=== PATIENT | female | born 1970 | race Caucasian/White ===

== ENCOUNTER 2018-09-22 13:58 | Outpatient (CLI) | payer OTHER ==
[~2018-09-22] VITALS: Ht 160 cm; Wt 99.8 kg
[2018-09-22] MEDS ORDERED: VORT20TA PO (14:36)
[2018-09-22] MEDS ORDERED: OXYC-471 PO (14:36)
[2018-09-22] MEDS ORDERED: LISI40TA PO (14:36)
== END 2018-09-22 14:44 | disposition home or self-care (01) ==
LOC: PREOP 13:58
PROVIDERS: ATTEND Orthopaedic Surgery
DX: Z01.818 Encounter for other preprocedural examination (principal)

== ENCOUNTER 2018-09-25 11:43 | Day surgery (SDC) | payer BC, OTHER ==
[2018-09-25] VITALS (9 sets, daily range): BP systolic 106–157; BP diastolic 61–84
[~2018-09-25] VITALS: Ht 160 cm; Wt 99.8 kg
[~2018-09-25 11:43] MED LIST: LISI40TA PO; OXYC-471 PO; VORT20TA PO
[2018-09-25 12:16] LABS: BASOPHILS % (AUTO) 0 % (0-10); EOSINOPHILS % (AUTO) 0 % (0-10); HEMATOCRIT 42 % (35-52); HEMOGLOBIN 13.8 G/DL (11.5-16.0); LYMPHOCYTES # (AUTO) 5.8 X 10^3 (1.0-4.0); LYMPHOCYTES % (AUTO) 28 % (12-44); MEAN CORPUSCULAR HEMOGLOBIN 31 PG (25-34); MEAN CORPUSCULAR HGB CONC 33 G/DL (32-36); MEAN CORPUSCULAR VOLUME 94 FL (80-99); MEAN PLATELET VOLUME 11.6 FL (7.4-10.4); MONOCYTES # (AUTO) 1.4 X 10^3 (0.0-1.0); MONOCYTES % (AUTO) 7 % (0-12); NEUTROPHILS # (AUTO) 13.7 X 10^3 (1.8-7.8); NEUTROPHILS % (AUTO) 65 % (42-75); PLATELET COUNT 326 10^3/uL (130-400); RED CELL DISTRIBUTION WIDTH 14.6 % (10.0-14.5); WHITE BLOOD COUNT 20.9 10^3/uL (4.3-11.0)
[2018-09-25] MEDS: LACTATED RINGERS 1,000 ML IV PRN ×2 (12:50→18:41)
[2018-09-25] MEDS ORDERED: ceFAZolin 2 GM IV Premixed 50 ML IV ONE (13:00)
[2018-09-25 13:03] LABS: BAND NEUTROPHILS 0 %; BASOPHILS % (MANUAL) 0 %; EOSINOPHILS % (MANUAL) 0 %; LYMPHOCYTES % (MANUAL) 34 %; MONOCYTES % (MANUAL) 4 %; NEUTROPHILS % (MANUAL) 62 %
[2018-09-25 13:04] LABS: RBC MORPH NORMAL
[2018-09-25] MEDS ORDERED: fentaNYL INJECTION 100 MCG/2 ML AMP IV ONE (13:45)
[2018-09-25] MEDS ORDERED: fentaNYL INJECTION 100 MCG/2 ML AMP ONE ×3 (13:47→16:44)
[2018-09-25] MEDS ORDERED: BACITRACIN 100,000 UNIT/NS 1000 ML POUR BOTTLE IR ONE ×2 (14:15)
[2018-09-25] MEDS ORDERED: VANCOMYCIN 1000 MG/VIAL ONE (14:22)
[2018-09-25] MEDS ORDERED: fentaNYL INJECTION 100 MCG/2 ML AMP IVP ONE ×2 (15:00→16:30)
[2018-09-25] MEDS ORDERED: NEOSTIGMINE 1 MG/ML 5 ML SYRINGE ONE ×2 (16:44→18:35)
[2018-09-25] MEDS ORDERED: SUCCINYLCHOLINE INJ 100 MG/5 ML SYR ONE (16:44)
[2018-09-25] MEDS ORDERED: proPOfol 200 MG/20 ML (DIPRIVAN) VIAL IV ONE (16:44)
[2018-09-25] MEDS ORDERED: MIDAZOLAM 2 MG/2 ML (VERSED) VIAL ONE (16:44)
[2018-09-25] MEDS ORDERED: GLYCOPYRROLATE 0.2 MG/ML (ROBINUL) 2 ML VIAL ONE ×2 (16:44→18:35)
[2018-09-25] MEDS ORDERED: ONDANSETRON 4 MG/2 ML (SDV) Z0FRAN ONE (16:44)
[2018-09-25] MEDS ORDERED: DEXAMETHASONE 10 MG/ML (DECADRON) 1 ML VIAL ONE (16:44)
[2018-09-25] MEDS ORDERED: SEVOFLURANE (ULTANE) 15 ML INHAL SOLN ONE ×2 (16:44→18:35)
[2018-09-25] MEDS ORDERED: LIDOCAINE PF 2% 5 ML (XYLOCAINE) VIAL ONE (16:44)
[2018-09-25] MEDS ORDERED: ROCURONIUM 10 MG/ML 5 ML SYRINGE IV ONE (16:44)
[2018-09-25] MEDS ORDERED: LACTATED RINGERS 1,000 ML IV ONE (18:35)
[2018-09-25] MEDS ORDERED: morphine INJ 10 MG/ML 1ML (SYR OR VIAL) ONE (19:09)
[2018-09-25] MEDS ORDERED: NS IV 1000 ML 1,000 ML IV SCH (19:15)
[2018-09-25] MEDS ORDERED: ACETAMINOPHEN 325 MG TABLET PO PRN (19:15)
[2018-09-25] MEDS ORDERED: ONDANSETRON 4 MG/2 ML (SDV) Z0FRAN IV PRN (19:15)
[2018-09-25] MEDS: HYDROmorphone 2 MG/ML VIAL (DILAUDID) ONE ×2 (19:25→20:27)
[2018-09-25] MEDS ORDERED: morphine INJ 10 MG/ML 1ML (SYR OR VIAL) IVP ONE (19:45)
[2018-09-25] MEDS ORDERED: MEPERIDINE (DEMEROL) INJ 50 MG/ML IVP ONE (19:45)
[2018-09-25] MEDS ORDERED: ONDANSETRON 4 MG/2 ML (SDV) Z0FRAN IVP PRN (19:45)
[2018-09-25] MEDS ORDERED: HYDROmorphone 2 MG/ML VIAL (DILAUDID) IV ONE (19:45)
[2018-09-25] MEDS ORDERED: oxyCODONE/APAP 5/325MG (PERCOCET 5) TABLET ONE (21:00)
[2018-09-25] MEDS ORDERED: FAMOTIDINE 20 MG (PEPCID) TABLET ONE (21:02)
[2018-09-25] MEDS: oxyCODONE/APAP 5/325MG (PERCOCET 5) TABLET PO PRN (21:06)
[2018-09-25] MEDS: FAMOTIDINE 20 MG (PEPCID) TABLET PO SCH (21:06)
[2018-09-25] MEDS: ceFAZolin INJECTION 1,000 MG in WATER (STERILE) FOR INJECTION 10 ML IV SCH (22:59)
[2018-09-26] MEDS: fentaNYL INJECTION 100 MCG/2 ML AMP IVP PRN ×2 (00:25→13:06)
[2018-09-26] MEDS: oxyCODONE/APAP 5/325MG (PERCOCET 5) TABLET PO PRN ×4 (01:18→15:30)
--- NOTE | 2018-09-26 03:27 | OPERATIVE REPORT ---
DATE OF SERVICE: 09/25/2018 SURGEON: Tim Ribeiro DO. PHP MAGENTO DEVELOPER: DAYLIN Mehta. This is a medically necessary procedure. Assistance was necessary for retraction of vital neurovascular structures. Without an assistant customer service manager, the procedure would not be possible. PREOPERATIVE DIAGNOSES: 1. Lumbar hematoma. 2. Lumbar radiculopathy. POSTOPERATIVE DIAGNOSIS: 1. Lumbar hematoma. 2. Lumbar radiculopathy. PROCEDURE PERFORMED: 1. Irrigation and debridement with evacuation of hematoma, lumbar spine. 2. Revision laminectomy at L4-L5. COMPLICATIONS: None. SPECIMEN SENT: None. DRAIN PLACED: Hemovac. ANESTHESIA: General endotracheal tube anesthesia with local anesthetic. HISTORY OF PRESENT ILLNESS: The patient is a very pleasant 47-year-old female, who underwent 10 days ago a lumbar decompression. She did well initially; however, she began experiencing severe radiating left lower extremity pain again. MRI did demonstrate a compressive hematoma, therefore she was agreeable to return to the OR for evacuation of that. DESCRIPTION OF PROCEDURE: The patient was identified by name on wrist ID band in the preoperative holding area. Her operative site was signed, consent was signed. SCDs were placed. Neuro monitoring was hooked up and antibiotics were started. She was taken to the operating room theater and placed under general endotracheal tube anesthesia and then transferred to the operating room table in the prone position. She was prepped and draped in usual sterile fashion. Formal timeout was conducted. At this point, I made a midline incision over the old incision. I removed all of the sutures and opened up the wound. I irrigated and removed as much of the blood clots as I could. Please note there was a significant compression on the thecal sac. When I was finished; however, there was no further compression. Also note that I did a revision laminectomy and I have removed some bone, more of L4 lamina to fully access the hematoma. When I was happy that there was no further neurologic compression, I irrigated the wound, maintained hemostasis. I placed a subfascial Hemovac drain. I closed the wound utilizing 0 Vicryl followed by 2-0 Vicryl followed by interrupted horizontal 3-0 Vicryl stitches. I applied dressings, took the patient in the supine position to the PACU where she awoke without incident. She tolerated the procedure well. The plan at this time is to admit the patient overnight for IV antibiotics, IV pain control and postop monitoring. I will plan to discontinue her drain in the morning. I will see her back in 2 weeks. 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
[2018-09-26 04:00] VITALS: BP 139/67
[2018-09-26 05:40] VITALS: BP 139/67
[2018-09-26] MEDS: ceFAZolin INJECTION 1,000 MG in WATER (STERILE) FOR INJECTION 10 ML IV SCH ×2 (06:28→15:30)
[2018-09-26 08:00] VITALS: BP 157/81
[2018-09-26] MEDS ORDERED: lisINopril 40 MG (PRINIVIL) TABLET PO SCH (09:00)
[2018-09-26] MEDS: FAMOTIDINE 20 MG (PEPCID) TABLET PO SCH (09:45)
[2018-09-26] MEDS ORDERED: PATIENT MAY USE OWN MED,SINGLE MED PO SCH (10:00)
--- NOTE | 2018-09-26 10:42 | Physical Therapy Evaluation ---
PT Evaluation-General Medical Diagnosis Admission Date Medical Diagnosis: evacuation of lumbar spine hematoma, revision of laminectomy L4-5 Onset Date: Sep 25, 2018 Therapy Diagnosis Therapy Diagnosis: impaired mobility, strength, endurance Height/Weight Height (Feet): 5 Height (Inches): 3.00 Weight (Pounds): 220 Weight (Ounces): 0.0 Precautions Precautions/Isolations: Standard Precautions Weight Bear Status Right Lower Extremity: Right Full Weight Bearing Left Lower Extremity: Left Full Weight Bearing Referral Physician: Lorenzo Jacques Reason for Referral: Evaluation/Treatment Medical History Additional Medical History No medical history in chart yet. Social History Home: Single Level Current Living Status: Spouse Entry Into Home: Ramp Prior/Core FIM Prior Level of Function Therapy Code Descriptions/Definitions Functional [place] Measure: 0=Not Assessed/NA 4=Minimal Assistance 1=Total Assistance 5=Supervision or Setup 2=Maximal Assistance 6=Modified [place] 3=Moderate Assistance 7=Complete [place] Therapy Quality Codes: 6 Independent with activity with or without an assistive device 5 Patient requires set up or clean up by helper. Patient completes activity by themselves 4 Supervision or touching assist (CGA). [place] provide cues , steadying assist 3 The helper provides less than half the effort to complete the activity 2 The helper provides more than half the effort to complete the activity 1 Dependent. The helper does all the effort to complete an activity 7 Patient refused to complete or attempt activity 9 The patient did not perform the activity before the current illness or injury 88 Not attempted due to Medical conditions or safety concerns Functional Abilities and Goals: Independent: Patient completed the activities by him/herself, with or without an assistive device, with no assistance from a helper. Needed Some Help: Patient needed partial assistance from another person to complete activities. Dependent: A helper completed the activities for the patient. Unknown: Not Applicable: Bed Mobility: 7 Transfers (B,C,W/C) (FIM): 7 Gait: 7 Stairs: 7 Indoor Mobility (Ambulation): Independent Stairs: Independent Patient states she should have been using a rolling waker, she was ambulation with dragging her left foot on the floor. PT Evaluation-Current Subjective Patient in recliner pre tx, agrees to PT, has 7/10 pain in low back. Pt/Family Goals to be independent at home Objective Patient Orientation: Person, Place, Situation Attachments: Drains, IV back brace ROM/Strength ROM Lower Extremities WNL Strength Lower Extremities 4+/5 gross bilateral lower extremities Neuromuscular (Tone, Coordination, Reflexes) NT Sensory Hearing: Functional Sensation Right Lower Extremit: Intact Sensation Left Lower Extremity: Intact Transfers Therapy Code Descriptions/Definitions Functional [place] Measure: 0=Not Assessed/NA 4=Minimal Assistance 1=Total Assistance 5=Supervision or Setup 2=Maximal Assistance 6=Modified [place] 3=Moderate Assistance 7=Complete [place] Transfers (B, C, W/C) (FIM): 4 Sit to/from Stand: 4 CGA, cues for hand placement and safety Gait Mode of Locomotion: Walk Anticipated Mode of Locomotion: Walk Gait (FIM): 2 Distance: 80' Gait Level of Assist: 4 Gait Persons Needed: 1 Gait Assistive Device: FWW Comments/Gait Description CGA, antalgic, slow, no dragging of left foot Balance Sitting Static: Normal Sitting Dynamic: Normal Standing Static: Good Standing Dynamic: Good Treatment Seated exercises x15 (AP, LAQ) Assessment/Needs Patient has impaired mobility, strength, endurance post lumbar surgery. She has a back brace and has been instructed to use it when out of bed. Rehab Potential: Fair PT Short Term Goals Short Term Goals Time Frame: Oct 03, 2018 Transfers (B,C,W/C) (FIM): 5 Gait (FIM): 5 Gait Distance Comment: 150' Gait Level of Assist: 5 Gait Assistive Device: FWW PT Plan Problem List Problem List: Activity Tolerance, Functional Strength, Safety, Balance, Gait, Transfer, Bed Mobility, ROM Treatment/Plan Treatment Plan: Continue Plan of Care Treatment Plan: Bed Mobility, Education, Functional Activity Lilia, Functional Strength, Gait, Safety, Therapeutic Exercise, Transfers Treatment Duration: Oct 03, 2018 Frequency: 11 times per week Estimated Hrs Per Day: .25 hour per day (15-30') Patient and/or Family Agrees t: Yes Safety Risks/Education Patient Education: Gait Training, Transfer Techniques, Correct Positioning, Safety Issues Teaching Recipient: Patient Teaching Methods: Demonstration, Discussion Response to Teaching: Reinforcement Needed Discharge Recommendations Plan Patient will perform bed mobility and transfer training, balance and endurance training, functional strengthening, stair training, gait training, and education , to improve functional mobility and independence at home. Therapy D/C Recommendations: Home w/ Family Support Time/GCodes Time In: 1015 Time Out: 1032 Total Billed Treatment Time: 17 Total Billed Treatment 1 visit EVM 17' KRTEK,ISAAC PT Sep 26, 2018 10:42
[2018-09-26 12:00] VITALS: BP 154/73
--- NOTE | 2018-09-26 12:44 | Anesthesia-General Post-Op ---
General Patient Condition Mental Status/LOC: Same as Preop Cardiovascular: Satisfactory Nausea/Vomiting: Absent Respiratory: Satisfactory Pain: Controlled Complications: Absent Post Op Complications Complications None Follow Up Care/Instructions Patient Instructions None needed. Anesthesia/Patient Condition Patient Condition Patient is doing well, no complaints, stable vital signs, no apparent adverse anesthesia problems. No complications reported per nursing. ESTELLA RICHARD CRNA Sep 26, 2018 12:44
--- NOTE | 2018-09-26 13:46 | Physical Therapy Daily Note ---
PT Daily Note-Current Subjective Patient ambulating in the hallway with her without using the back brace. Reminded patient she needs to use it when out of bed. Patient states it is uncomfortable so therapist makes adjustments that seem to improve comfort. Patient then ambulates with PT with the brace on. Patient has 5/10 pain in low back. Appearance Patient in bathroom post tx with nurse call. Instructed to call nurse when done. Mental Status Patient Orientation: Person, Place, Situation Attachments: Drains Transfers Therapy Code Descriptions/Definitions Functional [place] Measure: 0=Not Assessed/NA 4=Minimal Assistance 1=Total Assistance 5=Supervision or Setup 2=Maximal Assistance 6=Modified [place] 3=Moderate Assistance 7=Complete [place] Therapy Quality Codes: 6 Independent with activity with or without an assistive device 5 Patient requires set up or clean up by helper. Patient completes activity by themselves 4 Supervision or touching assist (CGA). [place] provide cues , steadying assist 3 The helper provides less than half the effort to complete the activity 2 The helper provides more than half the effort to complete the activity 1 Dependent. The helper does all the effort to complete an activity 7 Patient refused to complete or attempt activity 9 The patient did not perform the activity before the current illness or injury 88 Not attempted due to Medical conditions or safety concerns Transfers (B, C, W/C) (FIM): 5 Sit to/from Stand: 5 Weight Bearing Right Lower Extremity: Right Full Weight Bearing Left Lower Extremity: Left Full Weight Bearing Gait Training Gait (FIM): 5 Distance: 350' Gait Level of Assist: 5 Gait Persons Needed: 1 Gait Assistive Device: FWW Slow, antalgic ambulation Treatments ambulation, transfers Assessment Current Status: Fair Progress improved endurance PT Short Term Goals Short Term Goals Time Frame: Oct 03, 2018 Transfers (B,C,W/C) (FIM): 5 Gait (FIM): 5 Gait Distance Comment: 150' Gait Level of Assist: 5 Gait Assistive Device: FWW PT Plan Problem List Problem List: Activity Tolerance, Functional Strength, Safety, Balance, Gait, Transfer, Bed Mobility, ROM Treatment/Plan Treatment Plan: Continue Plan of Care Treatment Plan: Bed Mobility, Education, Functional Activity Lilia, Functional Strength, Gait, Safety, Therapeutic Exercise, Transfers Treatment Duration: Oct 03, 2018 Frequency: 11 times per week Estimated Hrs Per Day: .25 hour per day (15-30') Patient and/or Family Agrees t: Yes Safety Risks/Education Patient Education: Gait Training, Transfer Techniques, Correct Positioning, Reviewed Don/Doff Brace, Safety Issues Teaching Recipient: Patient Teaching Methods: Demonstration, Discussion Response to Teaching: Reinforcement Needed Time/GCodes Time In: 1325 Time Out: 1340 Total Billed Treatment Time: 15 Total Billed Treatment 1 visit GT 15' ISAAC VELAZCO PT Sep 26, 2018 13:46
[2018-09-26 16:08] VITALS: BP 165/85
--- NOTE | 2018-09-26 16:29 | Discharge Inst-Simple/Standard ---
Discharge Inst-Standard Patient Instructions/Follow Up Plan of Care/Instructions/FU: Follow up with Dr. Ribeiro in 2 weeks No showers or bathing until follow up visit No Lifting greater than 10 lbs. Use walker for ambulation Use back brace Activity as Tolerated: No Discharge Diet: No Restrictions FRANKIE RODRIGUEZ Sep 26, 2018 16:29
--- NOTE | 2018-09-26 16:33 | Discharge Summary ---
Diagnosis/Chief Complaint Date of Admission 09-25-18 Date of Discharge 09-26-18 Discharge Date: Sep 26, 2018 Discharge Time: 16:30 Admission Diagnosis Admission Diagnosis lumbar stenosis Post-operative fluid collection Discharge Diagnosis post-operative hematoma lumbar stenosis with radiculopathy Reason Hospital Visit Patient with post-operative fluid collection. Brought to via [facility] for I&D. Post-operative hematoma evacuated. Patient had complete pain relief on POD #1. Discharged home Discharge Summary Hospital Course Hospital Course Patient with post-operative fluid collection. Brought to via [facility] for I&D. Post-operative hematoma evacuated. Patient had complete pain relief on POD #1. Discharged home Labs Laboratory Tests 09/25/18 12:05: White Blood Count 20.9H, Red Cell Distribution Width 14.6H, Mean Platelet Volume 11.6H, Neutrophils # (Auto) 13.7H, Lymphocytes # (Auto) 5.8H, Monocytes # (Auto) 1.4H Procedures Lumbar I&D with evacuation of epidural hematoma Consultations none Discharge Physical Examination Allergies: Coded Allergies: No Known Drug Allergies (Unverified , 09/22/18) Vitals & I&Os Vital Signs Date Time Temp Pulse Resp B/P (MAP) Pulse Ox O2 Delivery O2 Flow Rate FiO2 09/26/18 16:08 97.1 66 16 165/85 (111) 96 Room Air 09/26/18 05:40 1.00 General Appearance: Alert, Oriented X3 Cardiovascular: Regular Rate Neuro: Normal Gait, Strength at 5/5 X4 Ext, Other (negative bilateral SLR) Discharge Home Medications Reviewed and agree with Discharge Medication list on patient's Discharge Instruction sheet Instructions to Patient/Family Please see electronic discharge instructions given to patient. Clinical Quality Measures DVT/VTE Risk/Contraindication: Risk Factor Score Per Nursin RFS Level Per Nursing on Admit: 3=High FRANKIE RODRIGUEZ Sep 26, 2018 16:33
--- NOTE | 2018-09-26 16:43 | NUR ---
CM/SS faxed the prescription for FWW to [facility], patient's had already left to pick it up from there.
--- NOTE | 2018-09-26 17:01 | NUR ---
DR MORATAYA HERE, DISCHARGE INSTRUCTIONS GIVEN, VERBALIZED UNDERSTANDING, IV DC, SITE WITHOUT REDNESS OR SWELLING, INSTRUCTED ON NO SHOWER OR BATH UNTIL FOLLOW UP, INSTRUCTED TO WEAR BACK BRACE WHEN UP, DENIES PAIN AT THIS TIME
[2018-09-26 17:03] VITALS: BP 165/85
--- NOTE | 2018-09-26 17:06 | NUR ---
GREG HODGES demonstrates understanding of discharge instructions and accurately returns instructions upon questioning. Copy of Post-Discharge Instructions and Medication Discharge Instructions given to PATIENT. GREG HODGES is able to manage continuing needs after discharge. Patients belongings returned to PATIENT. Skin dry and intact; BACK INCISION DRESSING DRY AND IN. Patient discharged from [facility] on 09/26/18 at 1507. GREG HODGES left floor via W/C, accompanied by STAFF.
== END 2018-09-26 17:07 | disposition home or self-care (01) ==
LOC: SDC 11:43 → 4TH 20:15 → SDC 09-26 17:07
PROVIDERS: ATTEND Orthopaedic Surgery
DX: M96.840 Postprocedural hematoma of a musculoskeletal structure following a musculoskeletal system procedure (principal); M54.16 Radiculopathy, lumbar region; Z11.2 Encounter for screening for other bacterial diseases; I10 Essential (primary) hypertension; F41.9 Anxiety disorder, unspecified; F17.210 Nicotine dependence, cigarettes, uncomplicated; Z79.899 Other long term (current) drug therapy
CPT/HCPCS: 36415; 85007; 85027; 87081; 94664; 94760